=== PATIENT | female | born 1970 | race African-American/Black ===

== ENCOUNTER 2021-11-16 15:14 | Outpatient (CLI) | payer BC, SELFPAY ==
[2021-11-16 15:21] LABS: Albumin* 4.4 g/dL (3.3-5.0); Chloride* 100 mmol/L (96-114)
[2021-11-16 15:22] LABS: Potassium* 4.2 mmol/L (3.6-5.1); Sodium* 139 mmol/L (135-149)
[2021-11-16 15:23] LABS: Creatinine Urine 198.1 mg/dL
[2021-11-16 15:24] LABS: Aspartate Amino Transferase* 25 U/L (12-35); Bilirubin Total* 0.3 mg/dL (0.1-1.5); Blood Urea Nitrogen* 15 mg/dL (7-30); Carbon Dioxide* 28 mmol/L (20-32); Cholesterol* 198 mg/dL (90-199); Creatinine* 0.6 mg/dL (0.5-1.5); Estimated Glomerular Filt Rate 107 ml/min; Glucose* 205 mg/dL (60-115); Total Protein* 7.7 g/dL (6.0-8.3)
[2021-11-16 15:25] LABS: Alanine Aminotransferase* 25 U/L (4-35); Alkaline Phosphatase* 136 U/L (40-150); Calcium* 9.3 mg/dL (8.4-10.6); HDL Cholesterol* 60 mg/dL (>=50); LDL Cholesterol Calculated 128 mg/dL (<100); Triglycerides* 51 mg/dL (40-149)
[2021-11-16 15:27] LABS: Microalbumin Creatinine Ratio 0 mg/g (0-30); Microalbumin Urine 1 mg/dL
== END 2021-11-16 15:15 | disposition home or self-care (01) ==
PROVIDERS: PCP Family Medicine; Visit Provider Family Medicine
DX: E11.9 Type 2 diabetes mellitus without complications (principal)
CPT/HCPCS: 80053; 80061; 82043; 82570